=== PATIENT | female | born 1980 | race Caucasian/White ===

== ENCOUNTER → 2024-02-25 10:04 | Outpatient (REF) | payer BC, SELFPAY ==
[2024-02-25 11:11] LABS: % Basophils 0.5 % (0-2); % Eosinophils 1.7 % (0-6); % Immature Granulocytes 0.3 % (0-0.5); % Lymphocytes 23.8 % (20.5-51.1); % Monocytes 8.5 % (1.7-9.3); % Neutrophils 65.2 % (42.2-75.2); Absolute Eosinophils 0.1 10^3/uL (0-0.7); Absolute Lymphocytes 1.4 10^3/uL (1.2-3.4); Absolute Monocytes 0.5 10^3/uL (0.1-0.6); Absolute Neutrophils 3.7 10^3/uL (1.4-6.5); Hematocrit 37.5 % (37.0-47.0); Hemoglobin 13.3 g/dL (12.0-16.0); Mean Corp Hgb Conc. 35.5 g/dL (33.0-37.0); Mean Corpuscular Hgb 33.8 pg (27.0-31.0); Mean Corpuscular Volume 95.2 fL (81.0-99.0); Mean Platelet Volume 10.4 fL (7.4-10.4); Nucleated Red Blood Cells % 0 %; Platelet Count 215 10^3/uL (130-400); Red Blood Cell Count 3.94 10^6/uL (4.20-5.40); Red Cell Dist. Width 12.3 % (11.5-14.5); White Blood Cell Count 5.8 10^3/uL (4.8-10.8)
[2024-02-25 11:56] LABS: ALT (SGPT) 20 U/L (0-35); AST (SGOT) 22 U/L (14-36); Albumin 4.5 g/dl (3.5-5.0); Alkaline Phosphatase 56 U/L (38-126); Blood Urea Nitrogen 9 mg/dl (7-17); Calcium 10.3 mg/dl (8.4-10.2); Carbon Dioxide 26 mmol/L (22-30); Chloride 107 mmol/L (98-107); Glucose 91 mg/dl (70-99); HDL Cholesterol 89 mg/dl; LDL Cholesterol, Calculated 97 mg/dl; Potassium 4.4 mmol/L (3.5-5.1); Sodium 139 mmol/L (135-145); Total Bilirubin 0.7 mg/dl (0.2-1.3); Total Cholesterol 207 mg/dl (50-199); Total Protein 6.9 g/dl (6.3-8.2); Triglyceride 107 mg/dl (10-149); Very Low Density Lipoprotein 21 mg/dl (0-30); eGFR > 60.00
== END ==
LOC: REG 10:04
PROVIDERS: ATTENDING PHYSICIAN Registered Nurse
DX: Z00.00 Encounter for general adult medical examination without abnormal findings (principal); E53.8 Deficiency of other specified B group vitamins
CPT/HCPCS: 36415; 80053; 80061; 84443; 85025

== ENCOUNTER → 2024-05-22 08:54 | Outpatient (REF) | payer BC, SELFPAY | LOC: MRI 3T 08:54 | PROVIDERS: ATTENDING PHYSICIAN Specialist; FAMILY PHYSICIAN Registered Nurse | DX: M25.511 Pain in right shoulder (principal) | CPT/HCPCS: 73221 ==

== ENCOUNTER → 2024-05-26 15:55 | Outpatient (REF) | payer BC, SELFPAY | LOC: PAVMRI 15:55 | PROVIDERS: ATTENDING PHYSICIAN Specialist; FAMILY PHYSICIAN Registered Nurse | DX: M54.12 Radiculopathy, cervical region (principal) | CPT/HCPCS: 72141 ==

== ENCOUNTER → 2024-05-28 08:57 | Outpatient (REF) | payer BC, SELFPAY | LOC: EMG 08:57 | PROVIDERS: ATTENDING PHYSICIAN Specialist; FAMILY PHYSICIAN Registered Nurse | DX: R29.898 Other symptoms and signs involving the musculoskeletal system (principal) | CPT/HCPCS: 95886; 95911 ==

== ENCOUNTER → 2024-06-21 10:28 | Outpatient (REF) | payer BC, SELFPAY | LOC: WDC 10:28 | PROVIDERS: ATTENDING PHYSICIAN Registered Nurse | DX: Z12.31 Encounter for screening mammogram for malignant neoplasm of breast (principal) | CPT/HCPCS: 77063; 77067 ==

== ENCOUNTER → 2024-07-06 10:45 | Outpatient (REF) | payer BC, SELFPAY ==
[2024-07-06 12:05] LABS: Erythrocyte Sed Rate 7 mm/hour (0-20)
[2024-07-06 12:54] LABS: Iron 82 ug/dl (37-170)
[2024-07-06 13:04] LABS: Percent Saturation 23 % (20-50); Total Iron Binding Capacity 348 ug/dl (265-497)
[2024-07-06 14:45] LABS: TSH Reflex To Free T4 0.92 uIU/ml (0.47-4.68)
[2024-07-06 15:00] LABS: C-Reactive Protein < 5.00 mg/L (0.0-10.00)
[2024-07-06 15:43] LABS: Hepatitis B Surface Antigen Negative (Negative); Syphilis/T. pallidum Ab Reflex Negative (Negative)
[2024-07-06 16:02] LABS: Hepatitis B Core Ab, Total Negative (Negative); Hepatitis B Surface Antibody Negative; Hepatitis C Antibody Negative (Negative)
[2024-07-08 11:41] LABS: Lyme Antibody Screen, EIA Negative (Negative)
[2024-07-08 13:06] LABS: HIV Combo Negative (Negative)
[2024-07-09 08:47] LABS: EBV-EA (D) Ab IgG <5.0 U/mL (0.0-10.9); EBV-NA IgG >600.0 U/mL (0.0-21.9); EBV-VCA IgM Antibodies 14.2 U/mL (0.0-43.9)
== END ==
LOC: REG 10:45
PROVIDERS: ATTENDING PHYSICIAN Psychiatry & Neurology Neurology; FAMILY PHYSICIAN Registered Nurse
DX: R20.0 Anesthesia of skin (principal)
CPT/HCPCS: 36415; 82164; 82595; 82784; 83516; 83521; 83540; 83550; 84155; 84165; 84207; 84425; 84443; 84446; 85652; 86038; 86140; 86235; 86334; 86618; 86663; 86664; 86665; 86704; 86706; 86780; 86803; 87340; 87389

== ENCOUNTER 2024-07-16 10:02 | Outpatient (RCR) | payer BC, SELFPAY | END 2024-07-16 23:59 | disposition home or self-care (01) | LOC: RPT 10:02 | PROVIDERS: ATTENDING PHYSICIAN Pain Medicine Interventional Pain Medicine; FAMILY PHYSICIAN Registered Nurse | DX: G54.4 Lumbosacral root disorders, not elsewhere classified (principal); R29.898 Other symptoms and signs involving the musculoskeletal system; Z73.6 Limitation of activities due to disability | CPT/HCPCS: 97110; 97112; 97140; 97162; 97530 ==

== ENCOUNTER 2024-07-23 10:25 | Outpatient (RCR) | payer BC, SELFPAY | END 2024-07-23 23:59 | disposition home or self-care (01) | LOC: RPT 10:25 | PROVIDERS: ATTENDING PHYSICIAN Pain Medicine Interventional Pain Medicine; FAMILY PHYSICIAN Registered Nurse | DX: G54.4 Lumbosacral root disorders, not elsewhere classified (principal); R29.898 Other symptoms and signs involving the musculoskeletal system; Z73.6 Limitation of activities due to disability | CPT/HCPCS: 97110; 97112; 97140 ==

== ENCOUNTER → 2024-09-07 13:20 | Outpatient (REF) | payer BC, SELFPAY | LOC: CLAB 13:20 | PROVIDERS: Pathology Anatomic Pathology & Clinical Pathology; ATTENDING PHYSICIAN Dermatology Dermatopathology | DX: D22.5 Melanocytic nevi of trunk (principal) | CPT/HCPCS: 88305 ==

== ENCOUNTER → 2025-02-17 11:12 | Outpatient (REF) | payer BC, SELFPAY | LOC: REG 11:12 | PROVIDERS: ATTENDING PHYSICIAN Internal Medicine Gastroenterology; FAMILY PHYSICIAN Registered Nurse | DX: R11.0 Nausea (principal); R19.4 Change in bowel habit | CPT/HCPCS: 36415; 82784; 83013; 83516; 86231 ==

== ENCOUNTER → 2025-02-18 11:04 | Outpatient (REF) | payer BC, SELFPAY | LOC: REG 11:04 | PROVIDERS: ATTENDING PHYSICIAN Internal Medicine Gastroenterology; FAMILY PHYSICIAN Registered Nurse | DX: R11.0 Nausea (principal); R19.4 Change in bowel habit | CPT/HCPCS: 82653; 82705; 83993; 87045; 87046; 87338; 87427 ==

== ENCOUNTER → 2025-03-02 09:50 | Outpatient (REF) | payer BC, SELFPAY | LOC: RAD 09:50 | PROVIDERS: ATTENDING PHYSICIAN Internal Medicine Gastroenterology; FAMILY PHYSICIAN Registered Nurse | DX: R11.0 Nausea (principal) | CPT/HCPCS: 76700 ==

== ENCOUNTER → 2025-04-04 08:35 | Outpatient (REF) | payer BC, OTHER, SELFPAY | LOC: MRI 08:35 | PROVIDERS: ATTENDING PHYSICIAN Nurse Practitioner Family; FAMILY PHYSICIAN Registered Nurse | DX: M25.561 Pain in right knee (principal) | CPT/HCPCS: 73721 ==

== ENCOUNTER 2025-04-11 06:30 | Day surgery (SDC) | payer BC, SELFPAY | END 2025-04-11 14:36 | disposition home or self-care (01) | LOC: GI 06:30 | PROVIDERS: ATTENDING PHYSICIAN Internal Medicine Gastroenterology | DX: K64.8 Other hemorrhoids (principal); R19.4 Change in bowel habit; K22.89 Other specified disease of esophagus; K21.9 Gastro-esophageal reflux disease without esophagitis; K44.9 Diaphragmatic hernia without obstruction or gangrene; K31.89 Other diseases of stomach and duodenum; R11.0 Nausea; Q40.2 Other specified congenital malformations of stomach | CPT/HCPCS: 45380; 43239; 88305; 88342 ==

== ENCOUNTER 2025-05-10 05:47 | Day surgery (SDC) | payer OTHER, BC, SELFPAY ==
[2025-05-10] VITALS (10 sets, daily range): BP systolic 101–130; BP diastolic 65–85; BMI 29.0
[2025-05-10] MEDS: CELEBREX 200 MG PO (06:27)
[2025-05-10] MEDS: NORMOSOL-R/PLASMALYTE-A 1000 IV (06:27)
[2025-05-10] MEDS: TYLENOL 1000 MG PO (06:27)
[2025-05-10] MEDS: DILAUDID 0.5 MG IV ×2 (07:57→08:21)
[2025-05-10] MEDS: DILAUDID 0.25 MG IV (08:12)
[2025-05-10] MEDS: ROXICODONE 5 MG PO (09:21)
== END 2025-05-10 10:05 | disposition home or self-care (01) ==
LOC: SDS 05:47
PROVIDERS: ATTENDING PHYSICIAN Specialist
DX: S83.271A Complex tear of lateral meniscus, current injury, right knee, initial encounter (principal); X58.XXXA Exposure to other specified factors, initial encounter; M94.261 Chondromalacia, right knee; M17.11 Unilateral primary osteoarthritis, right knee
CPT/HCPCS: 29881

== ENCOUNTER 2025-06-14 06:54 | Outpatient (RCR) | payer OTHER, BC, SELFPAY | END 2025-06-14 23:59 | disposition home or self-care (01) | LOC: RPT 06:54 | PROVIDERS: ATTENDING PHYSICIAN Physician Assistant Surgical; FAMILY PHYSICIAN Registered Nurse | DX: Z47.89 Encounter for other orthopedic aftercare (principal); Z73.6 Limitation of activities due to disability; R26.2 Difficulty in walking, not elsewhere classified; R26.89 Other abnormalities of gait and mobility; M25.561 Pain in right knee; M62.81 Muscle weakness (generalized); X58.XXXD Exposure to other specified factors, subsequent encounter; Y93.9 Activity, unspecified; Y92.89 Other specified places as the place of occurrence of the external cause; Y99.0 Civilian activity done for income or pay | CPT/HCPCS: 97010; 97110; 97112; 97140; 97162 ==

== ENCOUNTER → 2025-06-24 10:25 | Outpatient (REF) | payer OTHER, BC, SELFPAY | LOC: WDC 10:25 | PROVIDERS: ATTENDING PHYSICIAN Obstetrics & Gynecology; FAMILY PHYSICIAN Registered Nurse | DX: Z12.31 Encounter for screening mammogram for malignant neoplasm of breast (principal) | CPT/HCPCS: 77063; 77067 ==